=== PATIENT | female | born 1975 | race Caucasian/White ===

== ENCOUNTER 2019-05-05 18:46 | Emergency (ER) | payer MEDICAID ==
[2019-05-05] MEDS: CYCLOBENZAPRINE 10 MG TAB PO (22:06)
[2019-05-05] MEDS: KETOROLAC 30 MG INJ IM (22:07)
== END 2019-05-05 22:18 | disposition home or self-care (01) ==
LOC: FTE 18:46
DX: M62.830 Muscle spasm of back (principal); I10 Essential (primary) hypertension
CPT/HCPCS: 81025; 96372; 99284-25